=== PATIENT | female | born 1945 | race Hispanic/Latino ===

== ENCOUNTER 2018-07-12 08:13 | Outpatient (CLI) | payer MEDICARE | END 2018-07-12 08:14 | disposition home or self-care (01) | LOC: BICMAMMO 08:13 | PROVIDERS: ATTEND Family Medicine | DX: Z12.31 Encounter for screening mammogram for malignant neoplasm of breast (principal); R92.1 Mammographic calcification found on diagnostic imaging of breast | CPT/HCPCS: 77063; 77067 ==

== ENCOUNTER 2019-05-27 07:36 | Outpatient (CLI) | payer MEDICARE, MEDICAID ==
--- NOTE | 2019-05-27 08:54 | MRI ---
Brain MRI with and without contrast: 05/27/2019 COMPARISON: None HISTORY: Traumatic head injury, blurred vision TECHNIQUE: Multiplanar multisequence MR imaging of the brain obtained with and without contrast FINDINGS: The diffusion weighted imaging demonstrates no evidence for acute infarction. The axial gra dient echo imaging demonstrates no evidence for intracranial. The imaged paranasal sinuses/mastoid air cells demonstrate normal signal intensity. Arterial flow voi ds at the axial level of the skull base appear unremarkable on the T2-weighted imaging. There are a few scattered subcentimeter foci of increased T2 and FLAIR signal within the periventricu lar and deep white matter, suggesting mild small vessel disease. The postcontrast imaging demonstrates no abnormal enhancement within the brain parenchyma. IMPRESSION: No acute findings.
[2019-05-27] MEDS ORDERED: Gadobenate Dimeglumine 529 MG/1 ML (20ML VIAL) ONE (09:06)
== END 2019-05-27 07:37 | disposition home or self-care (01) ==
LOC: BICMRI 07:36
DX: H93.13 Tinnitus, bilateral (principal); G44.89 Other headache syndrome; H91.93 Unspecified hearing loss, bilateral; Z87.828 Personal history of other (healed) physical injury and trauma
CPT/HCPCS: 70553; 82565; A9577

== ENCOUNTER 2019-08-14 08:06 | Outpatient (CLI) | payer MEDICARE, MEDICAID ==
--- NOTE | 2019-08-14 11:54 | MMO ---
Bilateral MAMMO Bilat Screen [facility]. CLINICAL HISTORY: Patient is 73 years old and is seen for screening. The patient has no family history of breast cancer. The patient has no personal history of cancer. VIEWS: The views performed were: bilateral craniocaudal with tomosynthesis and bilateral mediolateral oblique with tomosynthesis. FILMS COMPARED: The present examination has been compared to prior imaging studies performed at [facility] on 06/22/2016, 07/07/2016, 07/09/2017 and 07/12/2018. This study has been interpreted with the assistance of computer-aided detection. MAMMOGRAM FINDINGS: There are scattered fibroglandular densities. There are no suspicious masses, suspicious calcifications, or new areas of architectural distortion. IMPRESSION: THERE IS NO MAMMOGRAPHIC EVIDENCE OF MALIGNANCY. A ROUTINE FOLLOW-UP MAMMOGRAM IN 1 YEAR IS RECOMMENDED. THE RESULTS OF THIS EXAM WERE SENT TO THE PATIENT. ACR BI-RADS Category 1 - Negative MAMMOGRAPHY NOTE: 1. A negative mammogram report should not delay a biopsy if a dominant of clinically suspicious mass is present. 2. Approximately 10% to 15% of breast cancers are not detected by mammography. 3. Adenosis and dense breasts may obscure an underlying neoplasm. Reported by: JAVAD MCDUFFIE MD Electonically Signed: [id number]
== END 2019-08-14 08:07 | disposition home or self-care (01) ==
LOC: BICMAMMO 08:06
PROVIDERS: ATTEND Family Medicine
DX: Z12.31 Encounter for screening mammogram for malignant neoplasm of breast (principal)
CPT/HCPCS: 77063; 77067

== ENCOUNTER 2020-08-06 10:34 | Outpatient (CLI) | payer MEDICARE, MEDICAID ==
--- NOTE | 2020-08-06 11:25 | MMO ---
Bilateral MAMMO Bilat Screen [facility]. CLINICAL HISTORY: Patient is 74 years old and is seen for screening. The patient has no family history of breast cancer. The patient has no personal history of cancer. VIEWS: The views performed were: bilateral craniocaudal with tomosynthesis and bilateral mediolateral oblique with tomosynthesis. FILMS COMPARED: The present examination has been compared to prior imaging studies performed at [facility] on 07/07/2016, 07/09/2017, 07/12/2018 and 08/14/2019. This study has been interpreted with the assistance of computer-aided detection. MAMMOGRAM FINDINGS: There are scattered fibroglandular densities. There are vascular calcifications seen in both breasts. There are no suspicious masses, suspicious calcifications, or new areas of architectural distortion. IMPRESSION: A ROUTINE FOLLOW-UP MAMMOGRAM IN 1 YEAR IS RECOMMENDED. THE RESULTS OF THIS EXAM WERE SENT TO THE PATIENT. ACR BI-RADS Category 2 - Benign finding MAMMOGRAPHY NOTE: 1. A negative mammogram report should not delay a biopsy if a dominant of clinically suspicious mass is present. 2. Approximately 10% to 15% of breast cancers are not detected by mammography. 3. Adenosis and dense breasts may obscure an underlying neoplasm. Reported by: ROJAS SANTANA MD Electonically Signed: [id number]
== END 2020-08-06 10:35 | disposition home or self-care (01) ==
LOC: BICMAMMO 10:34
PROVIDERS: ATTEND Family Medicine
DX: Z12.31 Encounter for screening mammogram for malignant neoplasm of breast (principal)
CPT/HCPCS: 77063; 77067

== ENCOUNTER 2021-09-21 09:05 | Outpatient (CLI) | payer MEDICARE, MEDICAID | END 2021-09-21 09:06 | disposition home or self-care (01) | LOC: BICMAMMO 09:05 | PROVIDERS: ATTEND Family Medicine | DX: Z12.31 Encounter for screening mammogram for malignant neoplasm of breast (principal) | CPT/HCPCS: 77063; 77067 ==

== ENCOUNTER 2023-01-05 08:03 | Outpatient (CLI) | payer OTHER, MEDICAID | END 2023-01-05 08:04 | disposition home or self-care (01) | LOC: BICMAMMO 08:03 | PROVIDERS: ATTEND Family Medicine | DX: Z12.31 Encounter for screening mammogram for malignant neoplasm of breast (principal); N64.89 Other specified disorders of breast | CPT/HCPCS: 77063; 77067 ==

== ENCOUNTER 2023-01-17 08:38 | Outpatient (CLI) | payer OTHER, MEDICAID | END 2023-01-17 08:39 | disposition home or self-care (01) | LOC: BICMAMMO 08:38 | PROVIDERS: ATTEND Family Medicine | DX: R92.8 Other abnormal and inconclusive findings on diagnostic imaging of breast (principal) | CPT/HCPCS: G0279 ==

== ENCOUNTER 2023-07-30 13:39 | Outpatient (CLI) | payer OTHER, MEDICAID | END 2023-07-30 13:40 | disposition home or self-care (01) | LOC: BICRAD 13:39 | PROVIDERS: ATTEND Family Medicine | DX: M79.622 Pain in left upper arm (principal); M19.012 Primary osteoarthritis, left shoulder ==

== ENCOUNTER 2024-02-27 13:37 | Outpatient (CLI) | payer OTHER, MEDICAID | END 2024-02-27 13:38 | disposition home or self-care (01) | LOC: BICMAMMO 13:37 | PROVIDERS: ATTEND Family Medicine | DX: Z12.31 Encounter for screening mammogram for malignant neoplasm of breast (principal) | CPT/HCPCS: 77063; 77067 ==

== ENCOUNTER 2024-03-26 11:57 | Outpatient (CLI) | payer OTHER, MEDICAID ==
[2024-03-26 13:41] LABS: #Basophils 0.08 10x3/uL (0.0-0.2); #Monocytes 0.85 10x3/uL (0.0-1.1); #Neutrophils 6.68 10x3/uL (1.5-8.4); %Basophils 0.8 % (0.0-2.0); %Lymphocytes 19.7 % (18.0-47.0); %Monocytes 8.8 % (0.0-10.0); %Neutrophils 69.3 % (40.0-75.0); Hematocrit 40.5 % (34.9-44.5); Hemoglobin 13.5 g/dL (12.0-15.5); Mean Corpuscular HGB CONC 33.3 g/dL (32.0-36.0); Mean Corpuscular Hemoglobin 31.3 pg (27.0-33.0); Mean Corpuscular Volume 93.8 fL (81.6-98.3); Mean Platelet Volume 10.8 fL (7.4-10.4); Platelet Count 238 10x3/uL (150-450); RBC Distribution Width 13.2 % (11.5-14.5); Red Blood Cell (RBC) Count 4.32 10x6/uL (3.90-5.03); White Blood Cell (WBC) Count 9.7 10x3/uL (3.5-10.5)
== END 2024-03-26 11:58 | disposition home or self-care (01) ==
LOC: LABBT 11:57
PROVIDERS: ATTEND Orthopaedic Surgery
DX: Z01.818 Encounter for other preprocedural examination (principal); S83.242A Other tear of medial meniscus, current injury, left knee, initial encounter; M23.42 Loose body in knee, left knee
CPT/HCPCS: 85025; 93005; 93010

== ENCOUNTER 2024-09-11 14:43 | Outpatient (CLI) | payer OTHER | END 2024-09-11 14:44 | disposition home or self-care (01) | LOC: BICULT 14:43 | PROVIDERS: ATTEND Family Medicine | DX: R22.1 Localized swelling, mass and lump, neck (principal); E04.1 Nontoxic single thyroid nodule | CPT/HCPCS: 76999 ==

== ENCOUNTER 2024-09-18 14:54 | Outpatient (CLI) | payer OTHER | END 2024-09-18 14:55 | disposition home or self-care (01) | LOC: BICULT 14:54 | PROVIDERS: ATTEND Family Medicine | DX: E04.1 Nontoxic single thyroid nodule (principal) | CPT/HCPCS: 76536 ==